=== PATIENT | male | born 1975 | race Caucasian/White ===

== ENCOUNTER 2021-05-23 22:52 | Emergency (ER) | payer OTHER ==
[2021-05-24 00:17] LABS: BUN/CREATININE RATIO 13 (0-10)
[2021-05-24 00:41] LABS: HEMOGLOBIN 15.5 gm/dl (14.0-17.5); RED BLOOD COUNT 5.2 M/UL (4.20-5.50); WHITE BLOOD COUNT 10.2 K/UL (4.5-11.0)
[2021-05-24] MEDS ORDERED: IBUPROFEN600 MG PO (01:05)
== END 2021-05-24 01:20 | disposition home or self-care (01) ==
LOC: ER1 22:52 → EDBD 22:52 → ER1 05-24 01:20
PROVIDERS: Family Medicine
DX: S13.9XXA Sprain of joints and ligaments of unspecified parts of neck, initial encounter (principal); S63.501A Unspecified sprain of right wrist, initial encounter; V49.9XXA Car occupant (driver) (passenger) injured in unspecified traffic accident, initial encounter
CPT/HCPCS: 71045; 72125; 72128; 73090; 73110; 80053; 85025; 96374; 99283; J1885